=== PATIENT | female | born 1955 | race Two or more races ===

== ENCOUNTER → 2017-04-20 | Outpatient (CLI) | payer OTHER ==
--- NOTE | 2017-04-20 17:29 | RAD ---
Right shoulder, 3 views, 04/20/2017: History: Shoulder pain No fracture or dislocation is identified. There is mild subacromial spurring. The periarticular soft tissues are unremarkable. IMPRESSION: 1. Mild degenerative change. 2. No acute abnormality is detected.
== END | disposition home or self-care (01) ==
LOC: RAD 15:07
PROVIDERS: ATTEND Family Medicine
DX: M25.511 Pain in right shoulder (principal)
CPT/HCPCS: 73030